=== PATIENT | male | born 1965 | race Caucasian/White ===

== ENCOUNTER 2021-02-06 16:09 | Inpatient (IN) ==
[2021-02-06 21:00] LABS: ABS Lymphocytes 0.6 10^3/ul (1.0-4.8); ABS Monocytes 0.4 10^3/ul (0-0.8); ABS Neutrophils 16.8 10^3/ul (1.5-7.7); Eosinophil % 0.1 %; Hematocrit 40 % (42-52); Hemoglobin 14.4 g/dL (14.0-18.0); Lymphocyte % 3.2 %; Mean Corpuscular HGB Conc 36 g/dL (31-36); Mean Corpuscular Hemoglobin 33 pg (27-31); Mean Corpuscular Volume 91 fL (80-94); Mean Platelet Volume 7.6 fL (7.4-10.4); Platelet Count 309 10^3/uL (150-450); Red Blood Count 4.42 10^6 /uL (4.18-5.48); Red Cell Distribution Width 14 % (10-15); White Blood Count 17.8 10^3/uL (3.5-10.8)
[2021-02-06 21:16] LABS: ALT 5 U/L (7-52); AST 13 U/L (13-39); Albumin/Globulin Ratio 0.6 (1-3); Alkaline Phosphatase 195 U/L (35-149); Anion Gap 6 mmol/L (2-11); Blood Urea Nitrogen 16 mg/dL (6-24); CO2 Carbon Dioxide 25 mmol/L (22-32); Calcium 9.3 mg/dL (8.6-10.3); Chloride 100 mmol/L (101-111); EGFR Non-African American 68.6 (>60); Globulin 4.8 g/dL (2-4); Glucose 137 mg/dL (70-100); Potassium 3.4 mmol/L (3.5-5.0); Sodium 131 mmol/L (135-145); Total Protein 7.8 g/dL (6.4-8.9)
[2021-02-06 21:28] LABS: Alcohol, S < 10 mg/dL (<10)
[2021-02-06 21:44] LABS: TSH Ultra Thyroid Stim Horm 0.42 mcIU/mL (0.34-5.60)
[2021-02-06] MEDS ORDERED: Ondansetron 4 mg VIAL 2 MG/ML 2 ml VIAL IV PRN (22:26)
[2021-02-06] MEDS ORDERED: Lactated Ringers 1000 ml BAG 1,000 ML IV ONE (22:33)
[2021-02-06] MEDS ORDERED: LORazepam 2 mg VIAL 1 ml IV PUSH SCH (23:00)
[2021-02-07] MEDS ORDERED: Nicotine GUM 4MG FRUIT FLAVOR PO PRN (00:31)
[2021-02-07 01:14] LABS: Urine Benzodiazepine Screen None Detected (None Detect); Urine Cannabinoids Screen None Detected (None Detect); Urine Opiates Screen Presumptive Positive (None Detect)
[2021-02-07] MEDS: Morphine ORAL.SOLN 10 mg 2 mg/ml UDC 5 ml (10 mg) PO PRN ×2 (01:30→16:36)
[2021-02-07] MEDS: Senna TAB 8.6 mg TAB PO PRN ×2 (01:32→22:08)
[2021-02-07 05:27] LABS: ABS Lymphocytes 1.2 10^3/ul (1.0-4.8); ABS Monocytes 0.8 10^3/ul (0-0.8); ABS Neutrophils 10.5 10^3/ul (1.5-7.7); Eosinophil % 0.1 %; Hematocrit 36 % (42-52); Hemoglobin 12.5 g/dL (14.0-18.0); Lymphocyte % 9.3 %; Mean Corpuscular HGB Conc 35 g/dL (31-36); Mean Corpuscular Hemoglobin 32 pg (27-31); Mean Corpuscular Volume 92 fL (80-94); Mean Platelet Volume 7.5 fL (7.4-10.4); Platelet Count 286 10^3/uL (150-450); Red Blood Count 3.96 10^6 /uL (4.18-5.48); Red Cell Distribution Width 14 % (10-15); White Blood Count 12.5 10^3/uL (3.5-10.8)
[2021-02-07 05:45] LABS: Albumin 2.5 g/dL (3.2-5.2); Albumin/Globulin Ratio 0.6 (1-3); Calcium 8.7 mg/dL (8.6-10.3); EGFR African American 108.2 (>60); EGFR Non-African American 89.4 (>60); Potassium 3.3 mmol/L (3.5-5.0); Total Bilirubin 0.4 mg/dL (0.2-1.0); Total Protein 6.5 g/dL (6.4-8.9)
[2021-02-07] MEDS: Methadone ORALSYR CONC LIQ 10 MG/ML PO SCH (11:24)
[2021-02-07] MEDS: TENOFOVIR ALAFENAMIDE PO SCH (14:09)
[2021-02-07] MEDS: BICTEGRAVIR PO SCH (14:09)
[2021-02-07] MEDS: EMTRICITABINE PO SCH (14:09)
[2021-02-07] MEDS ORDERED: Calcium Carb (TUMS) 500 mg CHEW TAB PO PRN (22:52)
[2021-02-07] MEDS: Al Hydrox/Mg Hydrox/Simet LIQ 30 ML UDC PO PRN (23:55)
[2021-02-08] MEDS: EMTRICITABINE PO SCH (07:54)
[2021-02-08] MEDS: Methadone ORALSYR CONC LIQ 10 MG/ML PO SCH (07:54)
[2021-02-08] MEDS: BICTEGRAVIR PO SCH (07:54)
[2021-02-08] MEDS: TENOFOVIR ALAFENAMIDE PO SCH (07:54)
[2021-02-08] MEDS ORDERED: Nicotine PATCH 21 MG/24 HR PATCH TRANSDERM SCH (08:00)
[2021-02-08] MEDS: Morphine ORAL.SOLN 10 mg 2 mg/ml UDC 5 ml (10 mg) PO PRN (12:34)
[2021-02-08] MEDS: Al Hydrox/Mg Hydrox/Simet LIQ 30 ML UDC PO PRN ×2 (13:42→20:42)
[2021-02-08] MEDS: Senna TAB 8.6 mg TAB PO PRN (20:46)
[2021-02-09] MEDS: Nicotine PATCH 21 MG/24 HR PATCH TRANSDERM SCH ×2 (01:28→09:11)
[2021-02-09] MEDS: guaiFENesin 100 mg/5 ml LIQ unit dose cup PO PRN (03:05)
[2021-02-09] MEDS: Morphine ORAL.SOLN 10 mg 2 mg/ml UDC 5 ml (10 mg) PO PRN ×5 (03:09→22:14)
[2021-02-09] MEDS: Methadone ORALSYR CONC LIQ 10 MG/ML PO SCH (09:11)
[2021-02-09] MEDS: TENOFOVIR ALAFENAMIDE PO SCH (10:49)
[2021-02-09] MEDS: EMTRICITABINE PO SCH (10:49)
[2021-02-09] MEDS: BICTEGRAVIR PO SCH (10:49)
[2021-02-09] MEDS ORDERED: Morphine ORAL CONCENTRATE 5 MG/0.25 ML ORAL.SYRIN PO ONE (11:25)
[2021-02-09] MEDS: Calcium Carb (TUMS) 500 mg CHEW TAB PO PRN ×2 (17:50→22:11)
[2021-02-10] MEDS: Morphine ORAL.SOLN 10 mg 2 mg/ml UDC 5 ml (10 mg) PO PRN ×6 (02:26→21:11)
[2021-02-10] MEDS: Methadone ORALSYR CONC LIQ 10 MG/ML PO SCH (08:58)
[2021-02-10] MEDS: EMTRICITABINE PO SCH (09:00)
[2021-02-10] MEDS: BICTEGRAVIR PO SCH (09:00)
[2021-02-10] MEDS: TENOFOVIR ALAFENAMIDE PO SCH (09:00)
[2021-02-10] MEDS: Nicotine PATCH 21 MG/24 HR PATCH TRANSDERM SCH (09:06)
[2021-02-10] MEDS: Calcium Carb (TUMS) 500 mg CHEW TAB PO PRN (21:08)
[2021-02-11] MEDS: Morphine ORAL.SOLN 10 mg 2 mg/ml UDC 5 ml (10 mg) PO PRN ×2 (00:19→10:12)
[2021-02-11 03:20] VITALS: BP 119/57
[2021-02-11] MEDS: Methadone ORALSYR CONC LIQ 10 MG/ML PO SCH (10:12)
[2021-02-11] MEDS: Nicotine PATCH 21 MG/24 HR PATCH TRANSDERM SCH (10:12)
[2021-02-11] MEDS: BICTEGRAVIR PO SCH (10:13)
[2021-02-11] MEDS: TENOFOVIR ALAFENAMIDE PO SCH (10:13)
[2021-02-11] MEDS: Senna TAB 8.6 mg TAB PO PRN (10:13)
[2021-02-11] MEDS: EMTRICITABINE PO SCH (10:13)
[2021-02-11] MEDS: guaiFENesin 100 mg/5 ml LIQ unit dose cup PO PRN (10:21)
== END 2021-02-11 14:20 | DRG 773 ==
LOC: ED 16:09 → MED 22:26
PROVIDERS: ADMIT Student in an Organized Health Care Education/Training Program; ATTEND Hospitalist